=== PATIENT | female | born 1945 | race Caucasian/White ===

== ENCOUNTER 2023-12-08 17:38 | Inpatient (IN) | payer MEDICARE, BC ==
[~2023-12-08] VITALS: Ht 170.2 cm; Wt 83.5 kg
[2023-12-08 18:45] LABS: BASOPHILS 0.3 % (0-2); EOSINOPHILS 0.2 % (0-6); HEMATOCRIT 39.8 % (35.0-50.0); HEMOGLOBIN 13.6 g/dL (12.0-18.0); MCHC 34.1 g/dl (30-36); MONOCYTES 6.9 % (0-12); NEUTROPHILS 77.6 % (39-80); PLATELET COUNT 323 K/uL (140-440); RBC 4.37 M/ul (4.3-5.7)
[2023-12-08 19:00] LABS: ALBUMIN 3.3 g/dL (3.4-5.0); ALBUMIN/GLOBULIN RATIO 0.97 (1.1-2.4); ANION GAP 11.8 (7-21); BILIRUBIN, TOTAL 0.7 ng/dL (0.2-1.0); BUN/CREATININE RATIO 13.58 (6.0-28.6); CALCIUM 9.5 mg/dL (8.5-10.1); CREATININE, SERUM 0.81 mg/dL (0.55-1.02); POTASSIUM 2.8 mmol/L (3.5-5.1); PROTEIN, TOTAL 6.7 g/dL (6.4-8.2)
--- OUTSIDE RECORDS SUMMARY | 2023-12-08 19:13 | XMS ---
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 E.Kuldeep VISIT COUNT (12 MO.) 3 Ginger Frias 1 [facility] TOTAL 4 NOTE: Visits indicate total known visits. ED/C VISIT TRACKING (12 MO.) 12/08/2023 17:39 MAYCOL Aragon TYPE: Emergency COMPLAINT: - ABDOMAINAL PAIN 11/22/2023 13:14 Ginger GONZALEZ TYPE: Emergency DIAGNOSES: - Hypokalemia 11/22/2023 12:35 Ginger GONZALEZ TYPE: Emergency DIAGNOSES: - Acute upper respiratory infection, unspecified - Post COVID-19 condition, unspecified - Congestion - COVID 06/26/2023 17:54 Hammon HEdilberto GONZALEZ TYPE: Emergency DIAGNOSES: - Dizziness and giddiness - Elevated blood-pressure reading, without diagnosis of hypertension - Hypokalemia - HTN - Hypertension INPATIENT VISIT TRACKING (12 MO.) No inpatient visits to display in this time frame [email or web address]
[2023-12-08] MEDS ORDERED: POTASSIUM CHLORIDE 10 MEQ/100 ML BAG IV SCH (19:15)
[2023-12-08] MEDS ORDERED: MAGNESIUM SULFATE 2 GM/50 ML BAG IV ONE (19:30)
[2023-12-08] MEDS ORDERED: LACTATED RINGER'S 1,000 ML IV ONE (20:15)
[2023-12-08] MEDS ORDERED: METOPROLOL SUCC50 MG PO (20:27)
[2023-12-08] MEDS ORDERED: TRAZODONE HCL100 MG PO (20:27)
[2023-12-08] MEDS ORDERED: SIMVASTATIN5 MG PO (20:27)
[2023-12-08] MEDS ORDERED: LISINOPRIL40 MG PO (20:27)
[2023-12-08] MEDS ORDERED: ADULT ASPIRIN R81 MG PO (20:28)
[2023-12-08] MEDS ORDERED: PAXLOVID 300-11 EAC1 PO (20:28)
[2023-12-08] MEDS ORDERED: TRIAMTERENE-HC1 EAC1 PO (20:28)
[2023-12-08] MEDS ORDERED: ZETIA10 MG PO (20:34)
[2023-12-08 22:08] VITALS: BP 150/82
[2023-12-08] MEDS ORDERED: PROCHLORPERAZINE EDISYLATE 10 MG/2 ML VIAL IV PRN (22:15)
[2023-12-08] MEDS ORDERED: DEXTROSE 5% - LACTATED RINGERS 1,000 ML IV SCH (22:15)
[2023-12-08] MEDS ORDERED: ondansetron HCL 4 MG/2 ML VIAL IV PRN (22:15)
--- NOTE | 2023-12-08 22:42 | NUR ---
TELEPHONE ORDER READ BACK FROM DR MC FOR BILATERAL KNEE HIGH SCD'S, BARREL WATERER TO OR AND POST OP.
--- NOTE | 2023-12-08 23:12 | NUR ---
Admitted to room 119 from ED via stretcher at 2200. transferred self w/o problems. up to brp, voided, back to bed 1pa. IV K rider started. see EMAR. was cooperative with admit questions and assessment. Skin fragile, multiple bruised areas over arms and legs, pt stated she takes aspirine, has inner ear problems leading to inbalance issues when walking. 1PA for safety. pt NPO for am surgery, Dr Victor seen pt
[2023-12-09] VITALS (9 sets, daily range): BP systolic 119–143; BP diastolic 51–78
--- NOTE | 2023-12-09 00:26 | NUR ---
PT C/O L LEG CRAMPING, SCDS IN PLACE, WARM BLANKET TO LEG , IVF INFUSING W/O PROBLEMS, HAS TOLERATED K RIDER IV AT A SLOW RATE, NPO FOR AM PROCEDURE.
--- NOTE | 2023-12-09 01:20 | NUR ---
CALL LIGHT ANSWERED, pt UP SBA TO VOID. BACK IN BED, VSS AND I&O'S COLLECTED. SCD'S RESUMED. CALL LIGHT IN REACH. BED ALARM RESUMED.
--- NOTE | 2023-12-09 03:20 | NUR ---
RESATING, NO S/SX DISTRESS, EYES CLOSED, IVF INFUSING
--- NOTE | 2023-12-09 04:50 | NUR ---
PT WAKENS EASILY, WALKED TO BRP, VOIDED, TAKING A HYBICLENS SHOWER AT THIS TIME. BED LINEN AND GOWN CHANGED, CLEAN SCDS IN PLACE. PLEASANT AND COOPERATIVE, NO C/O PAIN SINCE ADMIT. COOPERATIVE WITH ASSESSMENTS AND VITALS
--- NOTE | 2023-12-09 05:21 | NUR ---
call light answered, pt completed shower. new gown in place, pt back in bed, alarm resumed and call light in reach. iv fluids resumed as directed, brisk blood return noted to iv site. lab now in room for am blood draw.
[2023-12-09 05:33] LABS: BASOPHILS 0.8 % (0-2); EOSINOPHILS 0.9 % (0-6); HEMATOCRIT 37.8 % (35.0-50.0); HEMOGLOBIN 12.8 g/dL (12.0-18.0); LYMPHOCYTES 30.1 % (24-44); MCHC 33.8 g/dl (30-36); MCV 91.8 fl (81-99); MONOCYTES 7.2 % (0-12); PLATELET COUNT 300 K/uL (140-440); RBC 4.12 M/ul (4.3-5.7)
[2023-12-09 05:44] LABS: ANION GAP 12.1 (7-21); BUN/CREATININE RATIO 10.14 (6.0-28.6); CALCIUM 8.5 mg/dL (8.5-10.1); CREATININE, SERUM 0.69 mg/dL (0.55-1.02); POTASSIUM 3.1 mmol/L (3.5-5.1)
[2023-12-09] MEDS ORDERED: VANCOMYCIN HCL/D5W 1 GM/270 ML PIGGYBACK KIT IV ONE (07:00)
[2023-12-09] MEDS ORDERED: VANCOMYCIN HCL/D5W 1 GM/270 ML PIGGYBACK KIT IV SCH (07:00)
--- NOTE | 2023-12-09 07:15 | NUR ---
REPORT RECIEVED FROM JOSE SANCHES. PT LAYING IN BED SEMI-FOWLERS. IV INFUSING WNL. PT DENIES ANY NEEDS AT THIS TIME. CALL LIGHT IN REACH. BED ALARM ON.
[2023-12-09] MEDS ORDERED: POTASSIUM CHLORIDE 20 MEQ,LIDOCAINE HCL 1% 20 MG in DEXTROSE 5% 250 ML IV SCH (07:45)
[2023-12-09] MEDS ORDERED: POTASSIUM CHLORIDE 10 MEQ/100 ML BAG IV SCH (08:00)
--- NOTE | 2023-12-09 08:40 | NUR ---
IN TO ADMINISTER MEDICATIONS, SEE MAR. SCHMITZ IN ROOM TALKING WITH PT. ASSESSMENT COMPLETE. LUNG SOUNDS CLEAR. BOWEL TONES ACTIVE. PT REPORTING ABD TENDERNESS TO LLQ WITH PALPATION. SCATTERED BRUISING NOTED TO BILTERAL ARMS AND LEGS. PEDAL PULSES PALPABLE AND EQUAL. PT DENIES PAIN AT THIS TIME. IV FLUSHES AND IS INFUSING WNL. PT REPORTING TOILETING NEEDS. SBA FROM BED TO RESTROOM. VOID NOTED. PT BACK IN BED. PT REQUESTING ICE PACK FOR IV SITE DUE TO POTASSIUM "BURNING." ICE PACK PLACED WITH CLOTH BETWEEN SKIN AND ICE PACK. NEW IV STARTED OR NURSE REQUESTING NEW IV FOR MEDICATIONS, SEE VASCULAR ACCESS. OR NURSE IN ROOM. PT DENIES ANY OTHER NEEDS FROM THIS RN.
[2023-12-09] MEDS ORDERED: LIDOCAINE HCL 2% 20 MG/ML VIAL INJ ONE (08:54)
[2023-12-09] MEDS ORDERED: MAGNESIUM SULFATE 1 GM/2 ML VIAL ONE (08:54)
[2023-12-09] MEDS ORDERED: ACETAMINOPHEN 1,000 MG/100 ML VIAL ONE (08:54)
[2023-12-09] MEDS ORDERED: SUGAMMADEX SODIUM 200 MG/2 ML ML ONE (08:54)
[2023-12-09] MEDS ORDERED: LIDOCAINE HCL 2% 5 ML SDV ONE (08:54)
[2023-12-09] MEDS ORDERED: DEXAMETHASONE SOD PHOS 4 MG/ML VIAL ONE ×3 (08:54→09:33)
[2023-12-09] MEDS ORDERED: SUCCINYLCHOLINE IN 0.9% NACL 200 MG/10 ML SYRINGE ONE (08:54)
[2023-12-09] MEDS ORDERED: dexmedeTOMIDine HCl 200 MCG/2 ML VIAL ONE (08:54)
[2023-12-09] MEDS ORDERED: propofoL 200 MG/20 ML VIAL ONE (08:54)
[2023-12-09] MEDS ORDERED: ROCURONIUM BROMIDE 50 MG/5 ML SYR ONE ×2 (08:54→10:21)
[2023-12-09] MEDS ORDERED: KETAMINE in NS 50 MG/5 ML SYR ONE (08:54)
[2023-12-09] MEDS ORDERED: ondansetron HCL 4 MG/2 ML VIAL ONE (08:54)
[2023-12-09] MEDS ORDERED: fentaNYL citrate 100 MCG/2 ML VIAL ONE (08:54)
[2023-12-09] MEDS ORDERED: FAMOTIDINE 20 MG/ 2 ML VIAL IV SCH (09:00)
[2023-12-09] MEDS ORDERED: Ropivacaine HCl 0.5% 30 ML VIAL ONE (09:33)
[2023-12-09] MEDS ORDERED: SODIUM CHLORIDE 0.9% 20 ML IV ONE ×2 (09:33)
[2023-12-09] MEDS ORDERED: LACTATED RINGER'S 1,000 ML IV ONE (09:44)
[2023-12-09] MEDS ORDERED: ondansetron HCL 4 MG/2 ML VIAL IV PRN ×2 (09:45→12:45)
[2023-12-09] MEDS ORDERED: HYDROmorphone HCL 1 MG/ML SYR IV PRN ×2 (09:45→12:45)
[2023-12-09] MEDS ORDERED: droPERidol 5 MG/2 ML VIAL IV PRN (09:45)
[2023-12-09] MEDS ORDERED: IBLOOD GLUCOSE TEST STRIP 1 EA TEST VI PRN (09:45)
[2023-12-09] MEDS ORDERED: fentaNYL citrate 50 MCG/ML SDV IV PRN (09:45)
[2023-12-09] MEDS ORDERED: NALOXONE HCL 0.4 MG SYR IV PRN ×2 (09:45→12:45)
[2023-12-09] MEDS ORDERED: PROCHLORPERAZINE EDISYLATE 10 MG/2 ML VIAL IV PRN ×2 (09:45→12:45)
[2023-12-09] MEDS ORDERED: ePHEDrine sulfate 50 MG/ML AMP ONE ×2 (09:49→12:35)
--- NOTE | 2023-12-09 12:02 | NUR ---
PT OUT OF ROOM IN PROCEDURE.
--- NOTE | 2023-12-09 12:38 | NUR ---
PT OUT OF ROOM IN PROCEDURE.
[2023-12-09] MEDS ORDERED: IBUPROFEN 600 MG TAB PO PRN (12:45)
[2023-12-09] MEDS ORDERED: LORazepam 2 MG/ML VIAL IV PRN (12:45)
[2023-12-09] MEDS ORDERED: MORPHINE SULFATE 10 MG/ML VIAL IV PRN (12:45)
[2023-12-09] MEDS ORDERED: ALBUTEROL SULFATE 0.083% 3 ML VIAL INH PRN (12:45)
[2023-12-09] MEDS ORDERED: LACTATED RINGER'S 1,000 ML IV SCH (12:45)
[2023-12-09] MEDS ORDERED: OXYCODONE/APAP 7.5/325 TAB PO PRN (12:45)
[2023-12-09] MEDS ORDERED: ACETAMINOPHEN 500 MG TAB PO PRN (12:45)
--- NOTE | 2023-12-09 13:26 | NUR ---
PT ARRIVES BACK TO FLOOR IN BED ACCOMPANIED BY AND JOSE BONNER. PT ON 2L NC WITH O2 SATS AT 94%. PT RESPONDS WHEN ADDRESSED. PT DENIES ANY PAIN AT THIS TIME. CPOX PLACED. REPORT RECIEVED FROM JOSE BONNER. ABD BINDER IN PLACE. DRESSING TO MIDLINE ABD C/D/I. KHANG TO RLQ. KHANG DRESSING C/D/I. ICE WATER PROVIDED. IV FLUIDS STARTED PER MAR, SEE MAR. PTs AT BEDSIDE. PT DENIES ANY OTHER NEEDS AT THIS TIME. CALL LIGHT IN REACH.
--- NOTE | 2023-12-09 14:08 | NUR ---
12/09/23 1408 PazSamanta 1231-PT ARRIVES TO PACU ON 10L VIA MASK. PT IS NONAROUSABLE. ORAL AIRWAY IN PLACE. 1232-PT'S BP IS LOW. 1236-PT BP CONTINUES TO DECREASE. HOB DECREASED. IV FLUIDS INCREASED IN LEFT HAND IV SITE. IV FLUIDS STARTED IN R HAND IV SITE. BP MEDS GIVEN PER TIE LAYER. 1240-PT IS NONAROUSABLE WITH VERBAL AND TACTILE STIMULI. BP'S HAVE HAVE INCREASED. RESP EVEN AND UNLABORED. PT ON 10L VIA MASK. O2 SATS IN THE HIGH 90'S. 1249-PT IS REACTIVE TO VERBAL STIMULI. ORAL AIRWAY REMOVED. O2 SATS IN THE MID TO UPPER 90'S ON 10L VIA MASK. RESP EVEN AND UNLABORED. 1252-PT IS DROWSY. OPENS EYES WITH VERBAL STIMULI. PT DENIES PAIN AND NAUSEA AT THIS TIME. PT ORIENTED TO PLACE AND TIME. RESP EVEN AND UNLABORED. 1253-O2 TITRATED TO 6L VIA MASK. O2 SATES REMAIN IN THE MID TO UPPER 90'S. 1259-PT IS DROWSY. RESP EVEN AND UNLABORED. PT DENIES PAIN AND NAUSEA. 1302-O2 TITRATED OFF. O2 SATS AT 99% ON RA. PT IS ENCOURAGED TO TAKE DEEP BREATHS. 1307-DR. AT BEDSIDE. PT IS ENCOURAGED TO TAKE DEEP BREATHS. O2 SAT BTW 88-90% ON RA. WITH DEEP BREATHS PT O2 SATS INCREASE TO 94%. ON RA. 1310-PT IS DROWSY. RESP EVEN AND UNLABORED. DENEIS PAIN AND NAUSEA. PT IS ORIENTED TO TIME AND PLACE. 1314-O2 SATS AT 89-91% ON RA. PT ENCOURAGED TO TAKE DEEP BREATHS. PT DOES COUGH OCCASIONALLY. O2 STARTED AT 2L VIA NC. O2 SATS INCREASE TO 94%. 1318-PT IS DROWSY AND ASKING QUESTIONS. DENIES PAIN AND NAUSEA. 1331-PT TRANSFERED TO [facility]. BED PLUGGED IN AND BED RAILS UP. REPORT GIVEN TO CONSTRUCTION SAFETY CONSULTANT. PT DENIES PAIN AND NAUSEA. AT BEDSIDE. NO OTHER NEEDS AT THIS TIME.
[2023-12-09] MEDS ORDERED: BUDESONIDE EC3 MG PO (14:20)
[2023-12-09] MEDS ORDERED: ZETIA10 MG PO (14:21)
--- NOTE | 2023-12-09 14:30 | NUR ---
IN TO ROUND ON PT. PT SITTING UP IN BED AND RESPONDS WHEN ADDRESSD. VITALS COMPLETE. PT DENIES PAIN AT THIS TIME, PT STATES "I JUST FEEL HEAVY, LIKE YOUR PANTS ARE TOO TIGHT." PT DENIES ANY OTHER NEEDS AT THIS TIME. CALL LIGHT IN REACH. PTs IN ROOM.
--- NOTE | 2023-12-09 14:36 | NUR ---
MED REC COMPLETE
--- NOTE | 2023-12-09 14:49 | NUR ---
PT VOIDED FOR THE FIRST SINCE COMING BACK FROM SURGERY. WHILE SITTING UP SHE STATED SHE FELT A LITTLE LIGHT HEADED BUT NOT TOO BAD. PT USED 2PA LIGHTLY, SHE COULD BE A 1PA. PT USED A FWW TO HELP BALANCE HERSELF TO THE BSC. PT VOIDED 600ML. PT IS LAYING BACK IN BED, HEAD ELEVATED, SCDS ON WITH NO FURTHER NEEDS AT THIS TIME. PT NEEDED A LITTLE BIT OF HELP GETTING HER LEGS BACK UP ONTO THE BED. CALL LIGHT IS WITHIN REACH
--- NOTE | 2023-12-09 15:26 | NUR ---
IN TO ROUND ON PT. PT SITTING UP IN BED AND RESPONDS WHEN ADDRESSED. ASSESSMENT COMPLETE. BOWEL TONES HYPOACTIVE. ABD SOFT, TENDER WITH PALPATION. DRESSING TO MIDLINE LOWER ABD D/I WITH SCANT AMOUNT OF DRAINAGE NOTED. RLQ KHANG DRAIN IN PLACE WITH SANGUENOUS DRAINAGE NOTED. DRESSING TO KHANG SITE D/I WITH SCANT AMOUNT OF DRAIANGE NOTED. ABD BINDER IN PLACE. PT DENIES PAIN AT THIS TIME AND REPORITNG "JUST DISCOMFORT." ICE PACK TO ABD OVER ABD BINDER. IV INFUSING WNL. PT DENIES ANY OTHER NEEDS AT THIS TIME. CALL LIGHT IN REACH.
--- NOTE | 2023-12-09 16:55 | NUR ---
IN TO ASK PT TO AMBULATE, PT AGREEABLE. 1PA WITH FWW AND PTs AMBULATES X1 LAP AROUND MED/SURG FLOOR. PT TOLERATES WELL. PT BACK IN BED. PT BOOSTED IN BED WITH ASSISTANCE FROM JOSE LINO. SCD's PLACED. DINNER TRAY PROVIDED. PT DENIES ANY OTHER NEEDS AT THIS TIME. CALL LIGHT IN REACH. AT BEDSIDE.
--- NOTE | 2023-12-09 22:34 | NUR ---
pt medicated with 2mg iv ativan per anxiety per pts requests. alert and oriented, cooperative with citals and assessment. On room air, lungs clear bilat, Post op CPOX on at bedside, abd binder in place, midline opticoat dressing with old drainage in place. KHANG patent draining ss drainage. abd tender, soft, hypoactive bowel tones, no bm. denies passing gas. tolerating liquid diet well. IVF infusing RW areas, SL LW patent. SCDS in place. wanted to void. Pt stood up, denied feeling dizzy or lightheaded walked a couple steps and knees become very wobbly and unsteady, sat back edge of bed afte several cues as she still wanted to get up to BRP. UP to BSC with assist, voided dark yellow urine, unsteady, 2PA and verbal cuing needed on return to be. many verbal cuing needed to reposition pt once she got into bed. Denies need for pain meds at this time, HOB elevated, CPOx, IVF and SCDS in place. Pt alert and oriented
[2023-12-10] VITALS (7 sets, daily range): BP systolic 113–149; BP diastolic 54–79
--- NOTE | 2023-12-10 00:36 | NUR ---
RESTING, NO S/SX DISTRESS, HOB ELEVATED, IVF INFUSING W/O PROBLEMS, SCDS IN PLACE, POST OP CPOX AT BEDSIDE
--- NOTE | 2023-12-10 03:15 | NUR ---
resting, eyes closed, no s/sx distress, resp even, unlabored. IVF infusing w/o problems, cpox post op at bedside. scds in place
--- NOTE | 2023-12-10 05:18 | NUR ---
cOOP WITH VITALS AND SECOND ASSESSMENT. ON ROOM AIR, UP TO bsc, UNSTEADY, VOIDED, BACK TO BED 2pa. C/O VERTIGO WHEN UP. BACK TO BED, TOLERATED FAIR. NO C/O PAIN AT [place], AWAKE, ABD WITH GAUZE AND OPSITE IN PLACE, OLD DRAINAGE. KHANG R LOW ABD WITH SANGUINEOUS DRAINAGE. OLD DRAINAGE OVER DRESSING, scds BACK ON, ivf INFUSING, FRESH FLUIDS GIVE, COOPERATIVE
[2023-12-10 05:35] LABS: ANION GAP 9.4 (7-21); BUN/CREATININE RATIO 8.47 (6.0-28.6); CALCIUM 8.2 mg/dL (8.5-10.1); CREATININE, SERUM 0.59 mg/dL (0.55-1.02); POTASSIUM 3.4 mmol/L (3.5-5.1)
--- NOTE | 2023-12-10 07:33 | NUR ---
RECIEVED SHIFT REPORT FROM JOSE SANCHES. PT IS RESTING IN BED, EYES CLOSED. BREATHING EVEN AND UNLABORED. CALL LIGHT IN REACH.
--- NOTE | 2023-12-10 08:53 | NUR ---
MORNING ASSESSMENT COMPLETE. PT REQUESTING ABD BINDER TO BE ADJUSTED DO TO HAVING A DIFFICULT TIME TAKING DEEP BREATHS. THIS RN AND SIERRA IN ROOM TO HELP ADJUST BINDER. RECLINER WAS SUGGESTED AND PT WAS WILLING TO TRY. PT DENIES PAIN JUST UNCOMFORTABLE. FEET ELEVATED. BOWEL TONES HYPOACTIVE. PT IS PASSING GAS. KHANG INTACT, DRAINING SEROSANG FLUID. NO NEW CHANGES TO SURGICAL SITE. CALL LIGHT IN REACH.
[2023-12-10] MEDS ORDERED: POTASSIUM CHLORIDE 10 MEQ/100 ML BAG IV SCH (10:00)
[2023-12-10] MEDS ORDERED: HYDROCODONE/ACETA 5/325 TAB PO PRN (10:15)
--- NOTE | 2023-12-10 10:21 | OR ---
[facility] [address] [place], [place] [address] Signed DATE OF OPERATION: SURGEON: Nesha Ambrosio MD PREOPERATIVE DIAGNOSIS: Incarcerated ventral hernia. POSTOPERATIVE DIAGNOSIS: Incarcerated ventral hernia plus umbilical hernia. INDICATIONS: This is a 77-year-old female, who presented to the hospital yesterday with 24-hour history of periumbilical crampy abdominal pain associated with nausea and vomiting. She was evaluated with a CT scan in [place], where she was traveling and was found to have ventral hernia and was told to seek emergent medical attention. She ended up in our emergency room where I evaluated her and was able to partially reduce the hernia and we admitted her to the hospital to optimize her condition, replaced her electrolytes and this morning presents for urgent hernia repair. ANESTHESIA: General endotracheal anesthesia. PROCEDURE IN DETAIL: After obtaining informed consent, the patient was taken to the operating room where she was placed in supine position. The abdomen was then prepped and draped in standard sterile fashion with Betadine. An infraumbilical 10 cm incision was made and the subcutaneous dissection was carried out very gently with electrocautery. The hernia sac was identified, which was dissected off the fascia edge nicely. At this point, I was able to reduce the hernia sac and dissect posterior to the fascia in order to create primary repair. Once this was completed, I noticed an additional fascia defect, was identified at the level of umbilicus, which was about 2 x 1 cm in size. The hernia defect of the original ventral hernia measured about 8 x 6 cm. I went ahead and repaired both hernias primarily with several interrupted 0 Ethibond sutures. Adequate approximation was achieved. Due to the weak fascial wall I went ahead and placed a fashion in order to reenforce the repair. 0 Ethibond sutures were also used in interrupted fashion to secure the mesh to the fascia. The umbilical hernia was also incorporated with additional piece of mesh, which was also fixed with interrupted 0 Ethibond sutures. Adequate repair was achieved. At this point, I went ahead and pexied the based of the umbilicus to the fascia. I used 3-0 Vicryl suture for that. Adequate irrigation of the area was achieved. No bleeding was identified and I went ahead and placed a 10 mm Fercho-Montes in the field and was brought out through an additional stab Electronically Signed By: NESHA AMBROSIO MD 12/10/23 1021 PATIENT NAME: DAYNE URIARTE OPERATIVE REPORT DATE OF : 49 REPORT #: [id number] PHYSICIAN: NESHA AMBROSIO MD PCP: OTHER PCP REPORT IS CONFIDENTIAL AND NOT TO BE RELEASED WITHOUT AUTHORIZATION [facility] [address] [place] [id number] Signed wound. Drain was secured with 0 nylon suture. The wound was closed in two different layers in Gerard's fascia with several interrupted 3-0 Vicryl sutures and the skin was closed with dk. Sterile dressings were applied. Abdominal binder was also applied. The patient was then taken to the recovery room in good and stable condition after Anesthesia went ahead and performed a TAP procedure. Estimated blood loss was none. Complications none. The findings of the hernia sac were consistent with bowel that it was viable with no evidence of any type of pathology or ischemia. MD REGGIE Galan/GUERO /[id number] Copies: ~ Electronically Signed By: NESHA AMBROSIO MD 12/10/23 1021 PATIENT NAME: DAYNE URIARTE OPERATIVE REPORT DATE OF : 49 REPORT #: [id number] PHYSICIAN: NESHA AMBROSIO MD PCP: OTHER PCP REPORT IS CONFIDENTIAL AND NOT TO BE RELEASED WITHOUT AUTHORIZATION
--- NOTE | 2023-12-10 12:24 | NUR ---
patient to bsc 1pa/fww. Patient oxygen saturation went from 96 to 88. pt had complaints of "shortness of breath", and that the pt "couldnt take a deep breath". Nurse notified, pt back to bed, scds put back on, call light within reach. call light within reach.
[2023-12-10] MEDS ORDERED: CEFAZOLIN SODIUM 2 GM/20 ML SYR IV SCH (14:56)
--- NOTE | 2023-12-10 15:09 | NUR ---
pt was able to ambulate 3 laps around the unit with 1pa fww. pt tolerated well. she tends to sway and drift due to her vertigo. pt did not c/o pain only stated she flet "tired." rn pediatric used gait belt to assist and another pt followed behind pt with a wheelchair
[2023-12-10] MEDS ORDERED: POTASSIUM CHLORIDE 100 ML IV ONE (15:22)
--- NOTE | 2023-12-10 16:43 | NUR ---
pt at rn station. pt stated pt had br needs. pt up to br 1 pa w fww. pt stood up in br as I was entering back into br and became unsteady, but regained balance. pt req to stand to clean eulalia area. pt back to bed 1 pa w fww. I assisted pt feet into bed, but pt could not keep top of body upright and bumped her head on side rail. when asking pt if her head was okay, she stated "yes it is ok". pt denies any further needs. pt call light in reach. in room.
--- NOTE | 2023-12-10 20:21 | NUR ---
22G IV STARTED IN RAC. PT TOLERATED WELL. PT COMPLAINS OF WHEEZING IN THROAT. PILLOW PROVIDE AND INSTRUCTIONS GIVEN ON HOW TO USE PILLOW TO BRACE AND COUGH. WARM WATER PROVIDED. PT STATES NO OTHER NEEDS. CALL LIGHT IN REACH. SPOUSE IN ROOM.
--- NOTE | 2023-12-10 21:29 | NUR ---
pt cooperative with vitals and assessment. on room air, clear lungs, midline abd incision with gauze and opsite in place, old drainage. RLQ KHANG patent with sanguineous drainage, old drainage around dressing. SCDS in place, new site LW area, patent. Medicated with Ativan 2mg IV her requests per c/o increased anxiety, denies c/o abd pain.
--- NOTE | 2023-12-10 23:00 | NUR ---
Bed alarm going off, pt trying to get out of bed, scds still on. "I need to get to the bathroom". 1PA/FWW, slightly unsteady, voided, back to bed, alert to self. was incontinent of urine in bed, total bed linen changes done. Back to bed, forgetful, goes back to sleep. Bed alrm in place
[2023-12-11] VITALS (7 sets, daily range): BP systolic 151–153; BP diastolic 61–97
--- NOTE | 2023-12-11 00:38 | NUR ---
RESATING, EYES CLOSED, NO FURTHER C/O ANXIETY, ATIVAN EFFECTIVE, SCDS IN PLACE, BED ALARM ON AT NURSES DISCRETION.
--- NOTE | 2023-12-11 02:31 | NUR ---
PT CALLS TO USE BR. SBA, FWW TO BR. PT HAS HAND ON WALL ABOVE THE BR CALL LIGHT, HER HAND SLIPS DOWN THE WALL SNAGGING THE BACK OF HER FORARM ON THE CALL LIGHT. PT NOW HAS A SKIN TEAR TO THE BACK OF THE RIGHT FORARM. AREA COVERED WITH 2X2 GAUZE ANS COBAN. PT BACK TO BED, FWW SBA. PT STATESW NO OTHER NEEDS. CALL LIGHT IN REACH.
--- NOTE | 2023-12-11 02:52 | NUR ---
Pt resting, no s/sx distress, on room air, up to BRP earlier, back to bed, tolerated well. SCDS in place.
--- NOTE | 2023-12-11 06:09 | NUR ---
pT UP TO BRP A FEW MINUTES AGO WITH FLOAT NURSE [facility]. VOIDED DARK URINE AND BACK TO BED, SLIGHT UNSTEADINESS, TOLERATED WELL. ON ROOM AIR, BELOW UMBILICUS MIDLINE INCISION WITH GUZE AND OPSITE, OLD DRAINAGE, KHANG DRESSING WITH OLD DRAINAGE, PATENT. ABD SOFT, TENDER, HEA, DENIES PASSING GAS BUT DOES STAED LOTS OF BURPING. ALERT TO SELF BUT SEEMS FORGETFUL ABOUT MEDICATIONS SIDE EFFECTS SPECIFICLLY ATIVAN. ALERT TO NAME, SITUATION, FORGETFUL TO STAFF'S NAME. AWARE OF AND CHILDRENS NAM AND WHERE THEY LIVE. FLAT AFFECT AT TIMES, PLEASANT AND COOPERTIVE. SCDS IN PLACE, BED ALRM ON PT FORGETS ABOUT SCDS AND TRIES TO GET OUTOF BED W/O ASSIST. REDIRECTABLE, ALL PROCEDURES EXPLAINED TO PT, DENIES C/O PAIN OR NEED FOR PAIN MED. TOLERATING LIQUIDS WELL
--- NOTE | 2023-12-11 07:45 | NUR ---
RECIEVED SHIFT REPORT FROM JOSE SANCHES. PT RESTING IN BED, EYES CLOSED. BREATHING EVEN AND UNLABORED. CALL LIGHT IN REACH.
--- NOTE | 2023-12-11 09:22 | NUR ---
MORNING ASSESSMENT COMPLETE. DENIES PAIN. HAS CONCERSN OF SHAKINESS WHILE EATING THAT SHE HAS NOT EXPERIENCED BEFORE. THIS RN HAD PT RAISE ARMS UP, NO SHAKINESS NOTED. STATES SHE WAS HAVING A DIFFICUTLY EATING. PT WAS ABLE TO WALK TO THE BATHROOM AND TO CHAIR W/O DIFFICULTY. ABD BINDER ADJUSTED. KHANG HAS NO CHANGES, SEROUSANG DRAINGAGE NOTED. NO CHANGES TO SUGRIAL SITE. CALL ENCOURAGE PT TO AMBULATE TODAY. CALL LIGHT IN REACH.
--- NOTE | 2023-12-11 09:45 | NUR ---
Spoke with Livia. She states she was staying in [place], where her home in the process of construction. They sold their home in [facility] last week. They will be living in an RV until construction is completed. Pt has an ear issues and has poor balance. She uses a walking stick and her spouse bought a 2ww yesterday. 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 She denies any needs to dc. She well off financially. She will dc to home with her spouse and will live in their RV, near her son. She denies needs.
--- NOTE | 2023-12-11 10:50 | NUR ---
PATIENT UP TO AMBULATE 2 LAPS AROUND ENTIRE HALLWAY WITH BY SIDE AND FWW. NURSE FOLLOWED PATIENT WITH WHEELCHAIR, PATIENT IS UNSTEADY ON HER FEET, PER BASELINE.
[2023-12-11] MEDS ORDERED: METOPROLOL SUCCINATE 50 MG TABCR PO SCH (10:59)
[2023-12-11] MEDS ORDERED: TRIAMTERENE/HCTZ 37.5/25 1 EA TAB PO SCH (10:59)
[2023-12-11] MEDS ORDERED: lisinopriL 20 MG TAB PO SCH (10:59)
--- NOTE | 2023-12-11 13:46 | NUR ---
VISITED DURING SPIRITUAL CARE ROUNDS. PT APPEARED TO BE SLEEPING. DID NOT DISTURB. PROVIDED PRAYER.
--- NOTE | 2023-12-11 14:36 | NUR ---
UR CLINICAL REVIEW: 2 MN FOR VERSALUS-MEETS CRITERIA FOR INPT ADMISSION MEDICARE INPT 12/08/23 @ 2200 ORDER MATCHES REG NO AUTH REQUIRED PER MEDICARE GUIDELINES DISCHARGE TO HOME WHEN STABLE
--- NOTE | 2023-12-11 15:35 | NUR ---
AFTER THE 1400 VITALS WERE DONE. PATIENT AND I WALKED ONE LAP AROUND MED SURG. PATIENT DID SAY SHE FELT A LITTLE DIZZY. OTHER HOTEL RESERVATIONIST FOLLOWED THE REST OF THE WAY WITH A WHEELCHAIR. GOT HER SOME MORE WATER NO ICE. ALSO A WARM BLANKET. BUT BEFORE SHE LAID DOWN SHE NEEDED TO USE THE BATHROOM.
--- NOTE | 2023-12-11 16:04 | EKG ---
[facility] [address] [facility] [place] [address] Signed Normal sinus rhythm Anteroseptal infarct , age undetermined Abnormal ECG No previous ECGs available Confirmed by TONIA CURTIS MD ([id number]) on 12/11/2023 4:04:14 PM Electronically Signed By: TONIA CURTIS 12/11/23 1604 PATIENT NAME: DAYNE URIARTE Electrocardiogram DATE OF : 49 PHYSICIAN: TONIA CURTIS REPORT #: [id number] REPORT IS CONFIDENTIAL AND NOT TO BE RELEASED WITHOUT AUTHORIZATION
--- NOTE | 2023-12-11 17:36 | NUR ---
AFTERNOON ASSESSMENT COMPLETE. PT WAS ABLE TO WALK X4 THIS SHIFT WITHOUT DIFFICULTY. PT HAS BEEN EXHAUSTED AND STATES SHE IS TIRED FROM HER WALKING. PT COMPLAINED OF DIZZINESS AFTER WALK, THIS RN EXPLAINED TO PT SHE WAS STARTED BACK ON BLOOD PRESSURE MEDICATIONS, BUT TO NOTIFY STAFF IF IT WORSENS. CALL LIGHT IN REACH. DENIES NEEDS AT THIS TIME.
--- NOTE | 2023-12-11 19:33 | NUR ---
PT UP TO BATHROOM WITH PRIMARY RN, ROUNDED ON PT, BACK IN HER CHAIR INDEPENDENTLY NO NEEDS AT THIS TIME.
--- NOTE | 2023-12-11 19:34 | NUR ---
USED CALL LIGHT, UP TO BRP, 1PSBA, FWW, VOIDED, MUCH MORE STEADY GAIT, NO C/O PAIN OR ANXIETYAT THIS TIME. WALKED SELF TO CHAIR, LEGS ELEVATED, TOLERATED WELL
--- NOTE | 2023-12-11 19:57 | NUR ---
PT BACK TO BED, THIS RN INTO ROOM FOR SAFETY AND ASSISTANCE. PT ABLE TO GET INTO BED INDEPENDENTLY, ASSISTED WITH GOWN. COVERS PER CHOICE, ROOM TEMP TO 71; ALL PERSONAL SUPPLIES WITHIN REACH, INCLUDING CALL LIGHT.
[2023-12-12] VITALS (8 sets, daily range): BP systolic 135–153; BP diastolic 48–84
--- NOTE | 2023-12-12 00:09 | NUR ---
REASTING, EYES CLOSED, NO S/SX DISTRESS OR C/O PAIN, ABD BINDER IN PLACE. DECLINES SCDS AT THIS TIME.
--- NOTE | 2023-12-12 02:52 | NUR ---
Resting, on room air, turns and repositions self inbed. abd binder in place. no distress noted
--- NOTE | 2023-12-12 04:13 | NUR ---
Up to brp, 1PA/FWW, voided, back to bed, tolerated well, no c/o pain. Cooperative with second assessment. abd ashlyn inplace, "It bother me, I think its squezzing me and I have get up every hour, I would like to take it off". pt informed that we could ask the Surgeon in am. reasoning behind ashlyn, sereceptive. low abd midline incision covered with opsite nd gauze with old drainage. KHANG RLQ dressing with old drainage draining ss drainage.
--- NOTE | 2023-12-12 07:28 | NUR ---
REPORT RECEIVED FROM JOSE SANCHES. PT ASSISTED UP TO RESTROOM. CALL LIGHT IN REACH, INSTRUCTED TO CALL WHEN READY. USED FWW.
[2023-12-12] MEDS ORDERED: FAMOTIDINE 20 MG TAB PO SCH (09:00)
--- NOTE | 2023-12-12 09:11 | NUR ---
PT ASSITED FROM BATHROOM AFTER HAVING LARGE BM. CHANGED DEPENDS. ASSESSMENT COMPLETE AND MEDS ADMINISTERED.
--- NOTE | 2023-12-12 10:36 | NUR ---
PT C/O NAUSEA. ZOFRAN 4 MG GIVEN PER ORDER. PT RESTING IN BED. PT DENIES ANY NEEDS AT THIS TIME. CALL LIGHT IN REACH.
--- NOTE | 2023-12-12 11:51 | NUR ---
PT IN BED. VISITOR IN ROOM. PT DENIES ANY NEEDS. CALL LIGHT IN REACH.
--- NOTE | 2023-12-12 13:00 | NUR ---
pt resting in chair.plexiglas former in room. call light in reach.
--- NOTE | 2023-12-12 14:00 | NUR ---
Pt denies needs. Plans on dc on Mon or .
--- NOTE | 2023-12-12 14:31 | NUR ---
PT UP IN CHAIR. SHIFT ASSESSMENT COMPLETE. PT DENIES ANY PAIN OR TENDERNESS AT THIS TIME. PT STATED "I FEEL LIKE MY BS IS LOW, I AM USUALLY HYPOGLYCEMIC". PT BS TAKEN. BS 125. PT PROVIDED ORANGE JUICE PER PT REQUEST. PT DENIES ANY NEEDS AT THIS TIME. CALL LIGHT IN REACH.
--- NOTE | 2023-12-12 16:01 | NUR ---
PT RESTING IN BED. RR EVEN AND UNLABORED. CALL LIGHT IN REACH.
--- NOTE | 2023-12-12 16:48 | NUR ---
PT AMBULATED IN [place] 2 LAPS AROUND RN STATION. ALEVYN PLACED ON LEFT ANKLE SKIN TEAR. PT BACK IN CHAIR, PT DENIES ANY NEEDS, CALL LIGHT IN REACH
--- NOTE | 2023-12-12 17:09 | NUR ---
PTS DAY WENT WELL. PT DID NOT NEED ANY PRN PAIN MEDS. PT AMBULATED 3X'S IN THE [place]. BINDER MAY BE OFF WHEN IN BED. PT HAS MILD REDNESS FROM SKIN IRRITATION. PT HAD BM TODAY.
--- NOTE | 2023-12-12 17:58 | NUR ---
PT UP IN CHAIR. PT DENIES NEEDS AT THIS TIME. CALL LIGHT IN REACH
--- NOTE | 2023-12-12 18:16 | NUR ---
PT UP TO BR. AMBULATES IN [place] X2 LAPS AROUND RN STATION. PT BACK TO BED. DENIES FURTHER NEEDS. CALL LIGHT IN REACH
--- NOTE | 2023-12-12 19:15 | NUR ---
REPORT RECIEVED FROM DAY SHIFT RN. PATIENT SITTING IN CHAIR TALKING ON THE PHONE. PATIENT DENIES NEEDS AT THIS TIME. CALL LIGHT IN REACH.
--- NOTE | 2023-12-12 20:30 | NUR ---
PATIENT RESTING IN BED. VS AND I&Os OBTAINED AND RECORDED. IV FLUSHES WNL. ASSESSMENT COMPLETE. BOWEL TONES HYPOACTIVE. PATIENT DENIES PAIN AT THIS TIME. PATIENT WILLING TO WALK SOME LAPS AROUND THE FLOOR BEFORE BED. SCHEDULED MEDICATION ADMINSITERED. CRACKERS PROVIDED. NO FURTHER NEEDS. CALL LIGHT IN REACH.
--- NOTE | 2023-12-12 21:11 | NUR ---
PT AMBULATED 1 1/2-2 LAPS AROUND THE UNIT. PT USED RESTROOM AND IS BACK IN BED. PT HAS CALL LIGHT.
--- NOTE | 2023-12-12 23:04 | NUR ---
PATIENT RESTING IN BED ON BACK WITH EYES CLOSED. RESPIRATIONS EVEN AND UNLABORED. CALL LIGHT IN REACH.
[2023-12-13] VITALS (9 sets, daily range): BP systolic 132–155; BP diastolic 63–87
--- NOTE | 2023-12-13 00:57 | NUR ---
PATIENT RESTING IN BED ON BACK. AWAKENS EASILY. PATIENT DENIES NEEDS AT THIS TIME. CALL LIGHT IN REACH.
--- NOTE | 2023-12-13 03:15 | NUR ---
ROUNDING ON PATIENT. PATIENT REPORTS BEING ITCHY ON BACK AND ABD. RED RASH NOTED. THIS RN WIPED PATIENT RASH WITH CLEANSING WIPES, APPLIED LOTION AND ICE PACK. PATIENT UP TO BATHROOM TO VOID WITH SBA AND FWW. PATIENT BACK TO BED. NO FURTHER NEEDS. CALL LIGHT IN REACH.
--- NOTE | 2023-12-13 03:37 | NUR ---
CALL PLACED TO MD REGARDING PATIENTS RASH. NEW ORDER RECIEVED. VERIFIED USING REPEAT BACK METHOD.
[2023-12-13] MEDS ORDERED: diphenhydrAMINE HCL 25 MG CAP PO PRN (03:45)
--- NOTE | 2023-12-13 03:50 | NUR ---
PRN MEDICATION ADMISTERED PER PATIENT REQUEST. NO FURTHER NEEDS. CALL LIGHT IN REACH.
--- NOTE | 2023-12-13 06:41 | NUR ---
PATIENT RESTING IN BED. VS AND I&Os OBTAINED AND RECORDED. PATIENT DENIES ABD PAIN OR TENDERNESS. BOWEL TONES ACTIVE. KHANG DRAIN OUTPUT 20mL SEROSANGUINEOUS FLUID. MIDLINE DRAINAGE HAS MINIMAL DRY DRAINAGE. FRESH WATER PROVIDED. PATIENT HAS NO FURTHER NEEDS. CALL LIGHT IN REACH.
--- NOTE | 2023-12-13 10:04 | NUR ---
Patient awake, alert and oriented x4. Patient denies pain at this time. Dressing to abdomen is cdi, mikala drain noted to RLQ-scant serosang drainage noted. Patient declined to take her scheduled ancef this morning as she reports face itching/redness.
--- NOTE | 2023-12-13 10:30 | NUR ---
Spoke with Livia. IM letter completed. Pt plans on dc to home in [place] to tomorrow.
--- NOTE | 2023-12-13 13:38 | NUR ---
Benadryl 25mg po admin per patient request for itching. Patient has a rash to her back area. Dr. Ambrosio aware. Ancef discontinued per emar hx. Patient is awake, alert and oriented x4, respirations even and non labored. Vital signs stable. Patient denies needs at this time. Patient ambulated in hallway x2 laps, SBA with fww-tolerated well.
--- NOTE | 2023-12-13 14:12 | NUR ---
VISITED DURING SPIRITUAL CARE ROUNDS. PT APPEARED TO BE SLEEPING. DID NOT DISTURB. PROVIDED PRAYER.
--- NOTE | 2023-12-13 17:28 | NUR ---
Patient ambulated in hallway x2 laps, tolerated well SBA with walker. Fresh water provided. Patient denies pain at this time. Call light within reach.
--- NOTE | 2023-12-13 19:21 | NUR ---
REPORT RECIEVED FROM DAY SHIFT RN. PATIENT RESTING IN BED WITH EYES CLOSED. RESPIRATIONS EVEN AND UNLABORED. CALL LIGHT IN REACH.
--- NOTE | 2023-12-13 20:30 | NUR ---
PATIENT RESTING IN BED. VS AND I&Os OBTAINED AND RECORDED. SCHEDULED MEDICATION ADMINISTERED. IV FLUSHES WNL. ASSESSMENT COMPLETE. PATIENT DENIES ABD PAIN OR TENDERNESS. MIDLINE ABD DRESSING INTACT WITH MINIMAL DRY DRAINAGE. KHANG DRAIN OUTPUT 10 mL SEROSANGUENOUS FLUID. PATIENT REQUESTING SPRITE. SPRITE PROVIDED. PATIENT HAS NO FURTHER NEEDS. CALL LIGHT IN REACH.
--- NOTE | 2023-12-13 21:41 | NUR ---
CALL LIGHT ANSWERED, PRN BENADRYL GIVEN-SEE EMAR. SOFA MADE INTO BED FOR , NO ADDITIONAL NEEDS OR CONCERNS VERBALZIED. CALL LIGHT IN REACH.
--- NOTE | 2023-12-13 23:13 | NUR ---
PATIENT RESTING IN BED WITH EYES CLOSED. RESPIRATIONS EVEN AND UNLABORED. IN ROOM RESTING ON COUCH. NO FURTHER NEEDS. CALL LIGHT IN REACH.
--- NOTE | 2023-12-14 01:09 | NUR ---
PATIENT RESTING IN BED ON BACK WITH EYES CLOSED. RESPIRATIONS EVEN AND UNLABORED. CALL LIGHT IN REACH. IN ROOM RESTING ON COUCH.
--- NOTE | 2023-12-14 04:26 | NUR ---
PATIENT RESTING IN BED WITH EYES CLOSED. RESPIRATIONS EVEN AND UNLABORED. CALL LIGHT IN REACH.
--- NOTE | 2023-12-14 05:15 | NUR ---
PATIENT RESTING IN BED WITH EYES CLOSED. AWAKENS EASILY. ASSESSMENT COMPLETE. RESTING ON COUCH. MD IN ROOM. NO FURTHER NEEDS. CALL LIGHT IN REACH.
[2023-12-14 06:53] VITALS: BP 142/65
--- NOTE | 2023-12-14 07:16 | NUR ---
PT ASLEEP WITH RESPIRATIONS EVEN AND UNLABORED. CALL LIGHT WITHIN REACH, IN ROOM. REPORT RECEIVED FROM MONY GARCIA.
--- NOTE | 2023-12-14 08:10 | NUR ---
PATIENT IN BED AT THIS TIME. CALL LIGHT WITHIN REACH, NO FURTHER NEEDS AT THIS TIME.
--- NOTE | 2023-12-14 08:40 | NUR ---
PT RESTING IN BED, STATES SHE WANTS TO SLEEP UNTIL 0900 AND HAS NO NEEDS IDENTIFIED AT THIS TIME. CALL LIGHT WITHIN REACH.
[2023-12-14 09:38] VITALS: BP 143/70
--- NOTE | 2023-12-14 09:39 | NUR ---
WRITTEN AND VERBAL DISCHARGE INSTRUCTIONS GIVEN TO PT, PT STATES UNDERSTANDING. IV DC'D, CATHETER INTACT AND DRSG APPLIED.
== END 2023-12-14 10:25 | disposition home or self-care (01) | DRG 354 ==
LOC: ED 17:38 → MS 17:40
PROVIDERS: Emergency Medicine; ADMIT Transplant Surgery; ATTEND Transplant Surgery
PROC: 0WUF0JZ Supplement Abdominal Wall with Synthetic Substitute, Open Approach (ICD-10-PCS; principal; 2023-12-09 07:33)
DX: K43.6 Other and unspecified ventral hernia with obstruction, without gangrene (principal); E87.1 Hypo-osmolality and hyponatremia; E87.6 Hypokalemia; K42.0 Umbilical hernia with obstruction, without gangrene; K43.0 Incisional hernia with obstruction, without gangrene; E78.00 Pure hypercholesterolemia, unspecified; I10 Essential (primary) hypertension; Z90.710 Acquired absence of both cervix and uterus; Z90.79 Acquired absence of other genital organ(s); Z90.722 Acquired absence of ovaries, bilateral; Z90.49 Acquired absence of other specified parts of digestive tract; Z98.890 Other specified postprocedural states; Z88.2 Allergy status to sulfonamides; Z88.8 Allergy status to other drugs, medicaments and biological substances; Z79.899 Other long term (current) drug therapy; Z79.82 Long term (current) use of aspirin
CPT/HCPCS: 00752; 36415; 76942; 80048; 80053; 83605; 83735; 85025; 93005; 93010; 94640; 94760; 94762; 96365; 96366; 96368; 96375; 96376; 99284-25; C1781; G0378; J0131; J0330; J0690; J1100; J2001; J2060; J2405; J2704; J2795; J3010; J3370; J3475; J3480; J3490; J7121